=== PATIENT | female | born 1950 | race Native Hawaiian/Other Pacific Islander ===

== ENCOUNTER 2021-03-16 09:31 | Outpatient (CLI) | payer OTHER | END 2021-03-16 19:03 | disposition home or self-care (01) | LOC: RESP 09:31 | PROVIDERS: ATTEND Specialist | DX: Z01.810 Encounter for preprocedural cardiovascular examination (principal); I10 Essential (primary) hypertension; R94.31 Abnormal electrocardiogram [ECG] [EKG]; E78.49 Other hyperlipidemia; E11.9 Type 2 diabetes mellitus without complications; R94.2 Abnormal results of pulmonary function studies ==

== ENCOUNTER 2021-03-22 07:39 | Outpatient (CLI) | payer OTHER ==
[~2021-03-22] VITALS: Ht 160 cm; Wt 88.5 kg
== END 2021-03-22 20:08 | disposition home or self-care (01) ==
LOC: NM 07:39
PROVIDERS: ATTEND Specialist
DX: Z01.818 Encounter for other preprocedural examination (principal); R94.31 Abnormal electrocardiogram [ECG] [EKG]; E11.9 Type 2 diabetes mellitus without complications; I10 Essential (primary) hypertension; E78.2 Mixed hyperlipidemia; R94.2 Abnormal results of pulmonary function studies
CPT/HCPCS: A9500; J2785